=== PATIENT | female | born 1935 | race Caucasian/White ===

== ENCOUNTER 2016-08-28 06:16 | Emergency (ER) | payer MEDICARE, MEDICAID ==
[~2016-08-28] VITALS: Ht 157.5 cm; Wt 49.4 kg
[~2016-08-28 06:16] MED LIST: CALC-1029 PO; CHOL100044 PO; CYAN250010 PO; DENO60DI SQ; DONE10TA44 PO; EPOE40003 SQ; FOLI1TAB94 PO; LEVO88TA5 PO; MEMA10TA PO
--- NOTE | 2016-08-28 06:18 | NUR ---
PT BIB [facility] WITH A C/O AMS. PT IS FARSI SPEAKING ONLY. EMS STATED THAT THE PT HAD A GLF THIS AM, BUT PT WAS AMBULATORY ON SCENE. PT WAS TRIAGED AND TAKEN TO BED #7. PT WAS PLACED ON THE MONITOR AND CONTINUOUS PULSE OX. RESP EVEN AND UNLABORED. NO S/S OF PAIN OR DISTRESS NOTED. PT DENIES HEAD TRAUMA.
--- NOTE | 2016-08-28 06:20 | NUR ---
PT'S GRANDSON ARRIVED AND IS AT THE BEDSIDE SPEAKING TO DR. SYKES.
[2016-08-28] MEDS ORDERED: IV SET PRIMARY 1 EA INFUS.SET MC ONE (06:29)
[2016-08-28] MEDS ORDERED: IV NS 0.9% 1,000 ML ONE (06:29)
[2016-08-28] MEDS ORDERED: IV NS 0.9% 1,000 ML BAG IV ONE (06:30)
[2016-08-28 06:51] LABS: HEMATOCRIT 32 % (33-45); HEMOGLOBIN 9.9 g/dL (11.5-14.8); MEAN CORPUSCULAR HEMOGLOBIN 21 PG (26.0-33.0); MEAN CORPUSCULAR HGB CONC 31 g/dl (31.0-36.0); MEAN CORPUSCULAR VOLUME 65 fL (82-100); PLATELET COUNT (AUTO) 163 /CMM (150-450); RDW COEFFICIENT OF VARIATION 17.3 (11.5-15.0); RED BLOOD CELL COUNT(AUTO) 4.82 MIL/uL (4.0-5.2)
--- NOTE | 2016-08-28 06:56 | NUR ---
IN AND OUT CATH DONE AT THE BEDSIDE. URINE SAMPLE OBTAINED AND LAB CALLED FOR P/U.
--- NOTE | 2016-08-28 06:56 | NUR ---
FAMILY MEMBERS ARE AT THE BEDSIDE. PT APPEARS TO BE CALM WITH NO S/S OF DISTRESS.
[2016-08-28 07:03] LABS: ALANINE AMINOTRANSFERASE 17 U/L (12-78); ALBUMIN 3.7 g/dL (3.4-5.0); ASPARTATE AMINOTRANSFERASE 11 U/L (15-37); BILIRUBIN,DIRECT 0.1 mg/dL (0.0-0.2); BILIRUBIN,TOTAL 0.6 mg/dL (0.2-1.0); CALCIUM, SERUM 8.9 mg/dL (8.5-10.1); CARBON DIOXIDE 31 mmol/L (21-32); CHLORIDE 108 mmol/L (98-107); CREATININE 0.7 mg/dL (0.6-1.3); GLUCOSE 112 mg/dL (74-106); POTASSIUM 3.9 mmol/L (3.5-5.1); SODIUM SERUM 143 mmol/L (136-145); TOTAL PROTEIN, SERUM 6.9 g/dL (6.4-8.2); UREA NITROGEN, BLOOD 12 mg/dL (7-18)
[2016-08-28 07:06] LABS: TROPONIN I < 0.017 ng/mL (0.00-0.056)
--- NOTE | 2016-08-28 07:06 | NUR ---
PT LEFT FOR CT SCAN.
--- NOTE | 2016-08-28 07:13 | NUR ---
PT RETURNED FROM CT.
--- NOTE | 2016-08-28 07:13 | NUR ---
REPORT GIVEN TO SHELLI JONES FOR SACHIN.
[2016-08-28 07:30] LABS: ALKALINE PHOSPHATASE 43 U/L (46-116)
[2016-08-28 07:50] LABS: APPEARANCE,URINE CLEAR (CLEAR); BILIRUBIN,URINE NEGATIVE (NEGATIVE); BLOOD, URINE NEGATIVE Ery/uL (NEGATIVE); COLOR,URINE YELLOW (YELLOW); KETONES,URINE NEGATIVE (NEGATIVE); LEUKOCYTE ESTERASE ,URINE NEGATIVE (NEGATIVE); NITRITE, URINE NEGATIVE (NEGATIVE); PROTEIN,URINE NEGATIVE (NEGATIVE); UGLUCOSE NEGATIVE (NEGATIVE); UROBILINOGEN,URINE 0.2 EU/dL (0.2)
[2016-08-28 08:33] VITALS: BP 144/76
[2016-08-28 10:00] LABS: EOSINOPHILS % (MANUAL) 2 % (0-4); LYMPHOCYTES % (MANUAL) 32 % (16-48); MONOCYTES % (MANUAL) 2 % (0-11.0); NEUTROPHILS % (MANUAL) 64 (42-76)
[2016-08-28 10:01] LABS: ANISOCYTOSIS 2+; PLATELET ESTIMATE ADEQU
== END 2016-08-28 08:34 | disposition home or self-care (01) ==
LOC: ER 06:18
DX: R53.1 Weakness (principal); F03.90 Unspecified dementia, unspecified severity, without behavioral disturbance, psychotic disturbance, mood disturbance, and anxiety; E11.9 Type 2 diabetes mellitus without complications; E03.9 Hypothyroidism, unspecified; R51 Headache
CPT/HCPCS: 36415; 70450; 71010; 80048; 80076; 81001; 82962; 84484; 85025; 87086; 93005; 96360; 99285; A4606; J7030; 81000-TC; Z7610